=== PATIENT | female | born 1940 | race Caucasian/White ===

== ENCOUNTER 2018-04-01 06:50 | Day surgery (SDC) | payer MEDICARE ==
[~2018-04-01 06:50] MED LIST: CIPRO500 MG OR; LO-DOSE ASA81 MG OR; NAPROSYN500 MG OR
[2018-04-01 09:10] VITALS: BP 114/68
== END 2018-04-01 09:25 | disposition home or self-care (01) ==
LOC: ENDO 06:50 → ORM 08:00 → ENDO 09:25
PROVIDERS: ATTEND Surgery
PROC: 0DBH8ZX Excision of Cecum, Via Natural or Artificial Opening Endoscopic, Diagnostic (ICD-10-PCS; principal; 2018-04-01)
PROC: 0DBL8ZX Excision of Transverse Colon, Via Natural or Artificial Opening Endoscopic, Diagnostic (ICD-10-PCS; 2018-04-01)
PROC: 0DBN8ZX Excision of Sigmoid Colon, Via Natural or Artificial Opening Endoscopic, Diagnostic (ICD-10-PCS; 2018-04-01)
PROC: 0DBP8ZX Excision of Rectum, Via Natural or Artificial Opening Endoscopic, Diagnostic (ICD-10-PCS; 2018-04-01)
DX: K52.832 Lymphocytic colitis (principal)

== ENCOUNTER 2022-09-02 07:01 | Day surgery (SDC) | payer MEDICARE ==
[~2022-09-02] VITALS: Ht 165.1 cm; Wt 66.2 kg
[~2022-09-02 07:01] MED LIST changes: +BUDESONIDE3 MG PO; +XGEVA SC
[2022-09-02 10:17] VITALS: BP 165/93
== END 2022-09-02 09:45 | disposition home or self-care (01) ==
LOC: ORM 07:01
PROVIDERS: ATTEND Internal Medicine Gastroenterology
PROC: 0DB98ZX Excision of Duodenum, Via Natural or Artificial Opening Endoscopic, Diagnostic (ICD-10-PCS; principal; 2022-09-02)
PROC: 0DB78ZX Excision of Stomach, Pylorus, Via Natural or Artificial Opening Endoscopic, Diagnostic (ICD-10-PCS; 2022-09-02)
DX: K25.9 Gastric ulcer, unspecified as acute or chronic, without hemorrhage or perforation (principal); K29.70 Gastritis, unspecified, without bleeding; K31.9 Disease of stomach and duodenum, unspecified; K44.9 Diaphragmatic hernia without obstruction or gangrene; K52.832 Lymphocytic colitis; E04.1 Nontoxic single thyroid nodule